=== PATIENT | female | born 1950 | race Caucasian/White ===

== ENCOUNTER → 2021-01-03 | Outpatient (CLI) | payer MEDICARE, OTHER ==
[2021-01-03 13:21] LABS: African American GFR (CKD) >90 (>60 ml/min/1.73 sqM); Blood Urea Nitrogen 18 mg/dL (7-17); Non-African American GFR(CKD) >90 (>60 ml/min/1.73 sqM)
--- NOTE | 2021-01-03 14:47 | CT ---
EXAMINATION TYPE: CT abdomen pelvis w con DATE OF EXAM: 01/03/2021 HISTORY: Malignant neoplasm of uterus. CT DLP: 796.1mGycm Automated Exposure Control for Dose Reduction was Utilized. CONTRAST: CT scan of the abdomen and pelvis is performed with IV Contrast, patient injected with 100 mL of Isov ue M300. COMPARISON: None. FINDINGS: LUNG BASES: No significant abnormality is appreciated. LIVER/GB: No significant abnormality is appreciated. PANCREAS: No significant abnormality is seen. SPLEEN: No significant abnormality is seen. ADRENALS: No significant abnormality is seen. KIDNEYS: Symmetric corticomedullary uptake and excretion without hydronephrosis seen bilaterally. BOWEL: Small to moderate size hiatal hernia is present. Oral contrast reaches level of rectum. Some d iverticula in the proximal sigmoid colon left pelvis. UTERUS/ADNEXA: Uterus is surgically absent. Surgical clips left pelvic region are noted. Additional m ore superior right pelvic clips are present. LYMPH NODES: No greater than 1cm abdominal or pelvic lymph nodes are appreciated. OSSEOUS STRUCTURES: Underlying scoliosis. Straightening of sagittal images. Prominent Schmorl node wi th superior height loss left L1 vertebra. Moderate to severe spurring and disc space narrowing with e ndplate sclerosis L-1-L2, L2-L3, and L3-L4 levels. Gvdb-rg-piqgtiec disc space narrowing and vacuum d isc phenomenon level L4-L5 level. OTHER: Deep vertical subcutaneous clips over the lower abdomen and pelvis along the rectus sheath. IMPRESSION: No suspicious mass or adenopathy to suggest metastatic malignancy.
== END ==
LOC: RADCTMAIN 11:56
PROVIDERS: ATTEND Internal Medicine
DX: C55 Malignant neoplasm of uterus, part unspecified (principal); M61.00 Myositis ossificans traumatica, unspecified site; K44.9 Diaphragmatic hernia without obstruction or gangrene
CPT/HCPCS: 82565; 84520; 74177; 36415; Q9967 ×2

== ENCOUNTER → 2021-01-26 | Outpatient (CLI) | payer MEDICARE, OTHER ==
--- NOTE | 2021-01-26 12:57 | NM ---
EXAMINATION TYPE: NM stress cardiolite complete DATE OF EXAM: 01/26/2021 COMPARISON: NONE HISTORY: Abnormal ECG, R 94.31 TECHNIQUE: After the intravenous administration of 9.7 mCi Tc 99m Sestamibi - Rest images obtained 4 5 minutes post injection. The patient exercised using a KELLY protocol and 1 minute prior to peak e xercise was injected with 26.0 mCi Tc 99m Sestamibi - Stress images obtained 13 minutes post injectio n. Patient achieved greater than 85% of predicted maximal heart rate. FINDINGS: Targeted heart rate was achieved during performance of the study. Review of stress and rest SPECT claudia ges demonstrates some mild decreased uptake along the lateral wall the left ventricle towards the bas e the heart on stress as compared to rest images. Gated analysis shows normal wall motion with an es timated left ventricular ejection fraction of 70 %. IMPRESSION: Question some stress-induced left ventricular myocardial ischemia towards the base the heart, lateral wall. Consider echocardiographic correlation for elevated ejection fraction A Yellow level critical message alert has been initiated for Dougie Oviedo MD via the [employer] [facility] Results System on 01/26/2021 12:54 PM. This message alert has been sent to Dougie Oviedo MD vi a the preferences provided by the clinician for the receipt of Radiology Critical Findings. Message I D [id number].
--- NOTE | 2021-01-26 13:58 | EST ---
EXERCISE STRESS DATE OF SERVICE: AGE: 70 SEX: F HT: @@ WT: @@ PROTOCOL: @@ STAGE: @@ DURATION OF EXERCISE: @@ HEART RATE REST: @@ BLOOD PRESSURE REST: @@ MAXIMUM HEART RATE ACHIEVED: @@ MAXIMUM BLOOD PRESSURE: @@ 85% MPHR: @@ 100% MPHR: @@ METS: @@ RESULTS: Baseline rhythm is sinus mechanism rate of 61, poor R progression, left axis deviation, nonspecific ST T wave changes. Baseline blood pressure 135/82 mmHg. The patient exercised on Demetri protocol for 6 minutes reaching peak rate 140 beats per minute which is equal to 93% maximum predicted heart rate. Peak blood pressure 177/84. Test was terminated secondary to fatigue. There was no chest pain. Electrocardiograph monitoring revealed no evidence of diagnostic ischemic ST deviation. CONCLUSION: 1. Average exercise tolerance. 2. Nondiagnostic electrocardiograph stress testing secondary to baseline EKG abnormality. If clinically indicated, an imaging stress test will be helpful. MMMELISSAL / IJN: [id number] /
== END | disposition home or self-care (01) ==
LOC: RADNMMAIN 07:46
PROVIDERS: ATTEND Internal Medicine
DX: R94.31 Abnormal electrocardiogram [ECG] [EKG] (principal)
CPT/HCPCS: 93017; 78452; A9500

== ENCOUNTER 2021-02-09 05:41 | Day surgery (SDC) | payer MEDICARE, OTHER ==
[2021-02-04 12:58] VITALS: BMI 25.5
[2021-02-09] MEDS ORDERED: NITROGLYCERIN SL TABS 0.4 MG TAB SUBLINGUAL PRN (06:18)
[2021-02-09] MEDS ORDERED: SODIUM CHLORIDE 0.9% 1,000 ML in EMPTY BAG 1 BAG IV ONE (06:18)
[2021-02-09] MEDS ORDERED: ATORVASTATIN 80 MG TAB PO STA (06:18)
[2021-02-09] MEDS ORDERED: HEPARIN SODIUM,PORCINE 2,500 UNIT in SODIUM CHLORIDE 0.9% 250 ML IRRIGATION PRN (06:18)
[2021-02-09] MEDS ORDERED: ALPRAZolam 0.25 MG TAB PO PRN (06:18)
[2021-02-09] MEDS ORDERED: ALPRAZolam 0.5 MG TAB PO PRN (06:18)
[2021-02-09] MEDS ORDERED: ASPIRIN 325 MG TAB PO STA (06:18)
[2021-02-09] MEDS ORDERED: HEPARIN SODIUM,PORCINE 10,000 UNIT in SODIUM CHLORIDE 0.9% 1,000 ML IRRIGATION PRN (06:18)
[2021-02-09 06:42] LABS: Basophils # (A) 0.1 k/uL (0-0.2); Basophils % (A) 1 %; Eosinophils # (A) 0.8 k/uL (0-0.7); Eosinophils % (A) 7 %; HCT 39.7 % (34.0-46.0); HGB 13.6 gm/dL (11.4-16.0); Lymphocytes # (A) 1.4 k/uL (1.0-4.8); Lymphocytes % (A) 12 %; MCHC 34.4 g/dL (31.0-37.0); MCV 90.1 fL (80.0-100.0); Mean Platelet Volume 6.4; Monocytes # (A) 0.6 k/uL (0-1.0); Monocytes % (A) 5 %; Neutrophils # (A) 8.3 k/uL (1.3-7.7); Neutrophils % (A) 74 %; Platelet Count 334 k/uL (150-450); RBC 4.41 m/uL (3.80-5.40); WBC 11.3 k/uL (3.8-10.6)
[2021-02-09 06:51] LABS: African American GFR (CKD) >90 (>60 ml/min/1.73 sqM); Anion Gap 7 mmol/L; Blood Urea Nitrogen 23 mg/dL (7-17); Calcium 10.4 mg/dL (8.4-10.2); Carbon Dioxide 30 mmol/L (22-30); Chloride 102 mmol/L (98-107); Glucose 113 mg/dL (74-99); Non-African American GFR(CKD) >90 (>60 ml/min/1.73 sqM); Potassium 4.5 mmol/L (3.5-5.1); Sodium 139 mmol/L (137-145)
[2021-02-09] MEDS ORDERED: LIDOCAINE 1% INJ 10MG/ML (20 ML MDV) ONE (07:13)
[2021-02-09] MEDS ORDERED: VERAPAMIL 2.5 MG/ML 2 ML AMP ONE (07:13)
[2021-02-09] MEDS ORDERED: SODIUM CHLORIDE 0.9% 1,000 ML IV ONE (07:18)
[2021-02-09] MEDS ORDERED: fentaNYL (PF) 50 MCG/ML 2 ML AMP ONE (07:31)
[2021-02-09] MEDS ORDERED: HEPARIN SODIUM 1,000 UN/ML (10ML VL) ONE (07:31)
[2021-02-09] MEDS ORDERED: fentaNYL (PF) 50 MCG/ML 2 ML AMP IVP ONE (07:58)
[2021-02-09] MEDS ORDERED: LIDOCAINE 1% INJ 10MG/ML (20 ML MDV) SQ ONE (08:03)
[2021-02-09] MEDS ORDERED: VERAPAMIL SYRINGE (5 MG/10 ML) INTRAARTER ONE (08:04)
[2021-02-09] MEDS ORDERED: HEPARIN SODIUM 1,000 UN/ML (10ML VL) IV ONE (08:11)
[2021-02-09] MEDS ORDERED: IOPAMIDOL-370 125ML BTL INJ ONE (08:16)
[2021-02-09] MEDS ORDERED: RX INFO: IV CONTRAST WAS GIVEN 1 EACH MISC MISCELLANE PRN (08:30)
[2021-02-09] MEDS ORDERED: SODIUM CHLORIDE 0.9% 1,000 ML IV SCH (08:30)
[2021-02-09] MEDS ORDERED: NON FORMULARY DRUG (Irbesartan/Hydrochlorothiazide [Irbesartan-Hctz 300-12.5 Mg Tb] 1 EACH PO SCH (09:00)
[2021-02-09] MEDS ORDERED: PANTOPRAZOLE 40 MG TABLET PO SCH (09:00)
[2021-02-09] MEDS ORDERED: METOPROLOL SUCCINATE (ER) 50 MG TAB.ER.24H PO SCH (09:00)
[2021-02-09] MEDS ORDERED: ATORVASTATIN 80 MG TAB PO SCH (09:00)
[2021-02-09] MEDS ORDERED: LEVOTHYROXINE 112 MCG TAB PO SCH (09:00)
[2021-02-09] MEDS ORDERED: ASPIRIN 81 MG PO SCH (09:00)
[2021-02-09] MEDS ORDERED: ACETAMINOPHEN TAB 325 MG TAB ONE (09:51)
--- NOTE | 2021-02-09 10:26 | CC ---
CARDIAC CATHETERIZATION REPORT Mrs. Vallejo is a 70-year-old female, known history of hypertension, hyperlipidemia, who recently underwent a myocardial perfusion imaging that revealed evidence of inducible ischemia. In view of that, recommendation was made regarding cardiac catheterization. The procedure as well as the risks and complications were discussed with the patient who is in full understanding and agreement. PROCEDURE: Patient was brought to manager labor relations in a fasting, semi-sedated state after receiving fentanyl and Benadryl and achieving moderate conscious sedated state. Using Xylocaine anesthesia and Seldinger technique a 6-Pakistani sheath was introduced in the right radial artery. Selective right and left coronary angiography performed using 5-Pakistani 3.5 bend right Abe catheter. Multiple views of the coronary artery including hemiaxial views obtained. Following that a 5-Pakistani tight pigtail catheter was introduced into the left ventricle and pressures were calculated. Following that, catheter and sheath were removed. Hemostasis was obtained with deployment of a TR band. There was no immediate complication, patient was returned to her room in stable condition. Of note, the patient received 4000 units of intravenous heparin as well as intra-arterial verapamil. FINDINGS: Left Main: This is a large-sized vessel, bifurcating into left circumflex, left anterior descending artery. Left main coronary artery has no evidence of high-grade stenosis. Left Anterior Descending Artery: This is a large-sized vessel reaching to the apex, tortuous throughout its course, giving rise to a large diagonal branch proximally. The left anterior descending artery as well as its branches have no evidence of obstructive disease. Left Circumflex: This is a nondominant vessel giving rise to 2 obtuse marginal branch. The left circumflex as well as branches have no evidence of obstructive coronary artery disease. Right Coronary Artery: Right coronary artery is a dominant vessel, large in caliber bifurcating distally PDA and posterolateral segment and branches. The right coronary artery as well as its branches have no evidence of obstructive disease. LEFT VENTRICULOGRAM: Was not performed. HEMODYNAMICS: There was no gradient across the aortic valve. The ventricle end-diastolic pressure was in 10- 14 mmHg. CONCLUSION: 1. Normal coronary arteries. 2. Right-sided dominance. RECOMMENDATION: In view of finding anatomy recommend continuing with medical therapy with aggressive coronary risk modifications that have been initiated. Those findings and recommendation were discussed with the patient and she is in full understanding and agreement. Duration of sedation is 20 minutes. i MMODL / IJN: [id number] /
--- NOTE | 2021-02-09 10:30 | LTR ---
February 09, [address] Oviedo, I had the opportunity to perform cardiac catheterization on Mrs. Vallejo at [facility] on the January, and a full copy of the procedure note will be forwarded to you. In brief, she was found to have no evidence of significant obstructive coronary artery disease and based on those findings I recommend to continue medical therapy with aggressive coronary risk modifications that have been initiated. Thank you again for allowing me the opportunity to participate in her care, please feel free to call me for any questions. MMODL / IJN: [id number] /
[2021-02-09 19:30] VITALS: BP 120/72; PULSE 70
== END 2021-02-09 13:31 | disposition home or self-care (01) ==
LOC: CATHCVL 05:41
PROVIDERS: ATTEND Internal Medicine Interventional Cardiology
DX: I77.1 Stricture of artery (principal); I10 Essential (primary) hypertension; R94.39 Abnormal result of other cardiovascular function study; Z88.8 Allergy status to other drugs, medicaments and biological substances; Z90.710 Acquired absence of both cervix and uterus; Z85.42 Personal history of malignant neoplasm of other parts of uterus; Z90.89 Acquired absence of other organs; E78.2 Mixed hyperlipidemia; Z79.890 Hormone replacement therapy; Z79.51 Long term (current) use of inhaled steroids; Z79.899 Other long term (current) drug therapy
CPT/HCPCS: 93458; 80048; 85025; 87635; C1894; C1769 ×2; J2001; J3010; J1644; Q9967

== ENCOUNTER → 2021-03-15 | Outpatient (CLI) | payer MEDICARE, OTHER ==
--- NOTE | 2021-03-15 19:03 | BD ---
EXAMINATION TYPE: Axial Bone Density DATE OF EXAM: 03/15/2021 COMPARISON: NONE CLINICAL HISTORY: Postmenopausal screening Height: 65 IN Weight: 166 LBS FRAX RISK QUESTIONS: History of Fracture in Adulthood: RT WRIST AGE 62 Secondary Osteoporosis: 3. Menopause before 45: TOTAL HYST AGE 44 RISK FACTORS HISTORY OF: History of Wrist Fracture: RT WRIST AGE 62 Active: YES Postmenopausal woman: TOTAL HYST AGE 44 Take estrogen and/or progesterone medications: NOT NOW How long: AGE 45-50 Lost more than 2 inches in height since high school: YES 3" MEDICATIONS: Thyroid Medications: YES Which medication: Levothyroxine How Lon+ YEARS Additional Medications: CALCIUM, VIT D, LEVOTHYROXINE, BLOOD PRESSURE MEDS, CHOLESTEROL HEARTBURN MED S, ATORVASTATIN EXAM MEASUREMENTS: Bone mineral densitometry was performed using the [employer] System. Bone mineral density as measured about the Lumbar spine is: ----- L1-L4(G/cm2): 1.319 T Score Values are as follows: ----- L2: 2.2 ----- L3: 1.8 ----- L4: -0.2 ----- L1-L4: 1.2 Bone mineral density BASELINE Bone mineral density about the R hip (g/cm2): 0.831 Bone mineral density about the L hip (g/cm2): 0.841 T Score values are as follows: -----R Neck: -1.5 -----L Neck: -1.4 -----R Total: -0.6 -----L Total: -0.7 Bone mineral density BASELINE IMPRESSION: Osteopenia (T Score between -2.5 and -1). There is slightly increased risk of fracture and the patient may be considered for treatment. Re-Screen 2-5 years. NOTE: T-SCORE=SD OF THE YOUNG ADULT MEAN.
--- NOTE | 2021-03-21 11:50 | MM ---
Reason for exam: screening (asymptomatic). Last mammogram was performed 2 years and 1 month ago. History: Patient has history of other cancer at age 51. Benign stereotactic core biopsy of the left breast, 2012. Took progesterone beginning at age 46. Physical Findings: A clinical breast exam by your physician is recommended on an annual basis and results should be correlated with mammographic findings. MG 3D Screening Mammo W/Cad Bilateral CC and MLO view(s) were taken. Prior study comparison: January 29, 2019, mammogram, performed at [facility]. There are scattered fibroglandular densities. Previous mammotome biopsy in the left breast. Superior right MLO asymmetric density is unchanged. No significant changes when compared with prior studies. ASSESSMENT: Benign, BI-RAD 2 RECOMMENDATION: Routine screening mammogram of both breasts in 1 year.
== END | disposition home or self-care (01) ==
LOC: RADMAMWWP 10:55
PROVIDERS: ATTEND Internal Medicine
DX: Z12.31 Encounter for screening mammogram for malignant neoplasm of breast (principal); Z13.820 Encounter for screening for osteoporosis; C55 Malignant neoplasm of uterus, part unspecified; R94.31 Abnormal electrocardiogram [ECG] [EKG]; M85.80 Other specified disorders of bone density and structure, unspecified site; M81.0 Age-related osteoporosis without current pathological fracture
CPT/HCPCS: 77063; 77067; 77080

== ENCOUNTER → 2022-03-08 | Outpatient (CLI) | payer MEDICARE, OTHER ==
--- NOTE | 2022-03-09 08:15 | US ---
EXAMINATION TYPE: US carotid duplex BILAT DATE OF EXAM: 03/08/2022 COMPARISON: NONE CLINICAL HISTORY: 71-year-old female I65.23 CAROTID STENOSIS. Hypertension. TECHNIQUE: Carotid duplex ultrasound examination. Indirect Doppler criteria is visualized. FINDINGS: EXAM MEASUREMENTS: RIGHT: Peak Systolic Velocity (PSV) cm/sec ----- Right CCA: 71.0 ----- Right ICA: 88.9 ----- Right ECA: 125.8 ICA/CCA ratio: 1.3 RIGHT: End Diastole cm/sec ----- Right CCA: 20.4 ----- Right ICA: 29.6 ----- Right ECA: 16.0 LEFT: Peak Systolic Velocity (PSV) cm/sec ----- Left CCA: 69.8 ----- Left ICA: 96.8 ----- Left ECA: 85.8 ICA/CCA ratio: 1.4 LEFT: End Diastole cm/sec ----- Left CCA: 18.0 ----- Left ICA: 35.4 ----- Left ECA: 11.6 VERTEBRALS (direction of flow): Right Vertebral: Antegrade Left Vertebral: Antegrade Rhythm: Normal SENIOR DATA SCIENTIST NOTES: No significant stenosis IMPRESSION: No hemodynamically significant internal carotid artery stenosis on either side. Criteria for Assigning % of Stenosis / Diameter reduction (Estimation based on the indirect measurements of the internal carotid artery velocities (ICA PSV). 1. Normal (no stenosis)=ICA PSV < 125 cm/s: ratio < 2.0: ICA EDV<40 cm/s. 2. Less than 50% stenosis=ICA PSV < 125 cm/s: ratio < 2.0: ICA EDV<40 cm/s. 3. 50 to 69% stenosis=ICA PSV of 125 to 230 cm/s: ration 2.0 ? 4.0: ICA EDV 40-100 cm/s. 4. Greater than 70% stenosis to near occlusion= ICA PSV > 230 cm/s: ratio > 4.0: ICA EDV > 100 cm/s. 5. Near occlusion= ICA PSV velocities may be low or undetectable: variable ratio and ICA EDV. 6. Total occlusion=unable to detect flow.
== END | disposition home or self-care (01) ==
LOC: RADUSWWP 16:49
PROVIDERS: ATTEND Internal Medicine
DX: I65.23 Occlusion and stenosis of bilateral carotid arteries (principal)
CPT/HCPCS: 93880

== ENCOUNTER → 2022-07-03 | Outpatient (CLI) | payer MEDICARE, OTHER ==
--- NOTE | 2022-07-03 13:02 | XR ---
EXAMINATION TYPE: XR ankle complete LT DATE OF EXAM: 07/03/2022 COMPARISON: NONE HISTORY: Pain FINDINGS: Three views of the ankle demonstrate the ankle mortise to be intact and symmetric. There is a displac ed oblique fracture through the distal fibula. Calcaneal spur noted. Soft tissue edema laterally. IMPRESSION: 1. There is a displaced oblique fracture through the distal fibula.
== END | disposition home or self-care (01) ==
LOC: RADXRMAIN 12:31
PROVIDERS: ATTEND Internal Medicine
DX: S82.432A Displaced oblique fracture of shaft of left fibula, initial encounter for closed fracture (principal); M25.572 Pain in left ankle and joints of left foot

== ENCOUNTER → 2023-01-10 | Outpatient (CLI) | payer MEDICARE, OTHER ==
--- NOTE | 2023-01-10 15:33 | CT ---
EXAMINATION TYPE: CT abdomen pelvis w con DATE OF EXAM: 01/10/2023 HISTORY: h/o uterine CA, elevated LFTs CT DLP: 693.7mGycm Automated Exposure Control for Dose Reduction was Utilized. CONTRAST: CT scan of the abdomen and pelvis is performed with IV Contrast, patient injected with 100 mL of Isov ue 300. COMPARISON: CT January 03, 2021 FINDINGS: LUNG BASES: Mild anterior linear scarring and/or atelectasis redemonstrated. LIVER/GB: Liver remains normal in size without concerning solid or cystic mass or new biliary dilatat ion. Liver remains heterogeneously hypodense. PANCREAS: No significant abnormality is seen. SPLEEN: No significant abnormality is seen. ADRENALS: No significant abnormality is seen. KIDNEYS: No significant abnormality is seen. BOWEL: Oral contrast does not reach level of terminal ileum. Small to moderate size hiatal hernia red emonstrated. No suspicious small or large bowel dilatation. Surgical clips with streak artifact near base of cecum are redemonstrated. Some scattered colonic diverticula are redemonstrated. No CT eviden ce for acute diverticulitis. UTERUS/ADNEXA: Uterus surgically absent. Surgical clips left pelvis redemonstrated. LYMPH NODES: No greater than 1cm abdominal or pelvic lymph nodes are appreciated. OSSEOUS STRUCTURES: Underlying scoliosis redemonstrated. Straightening of spine on sagittal images re demonstrated. Prominent Schmorl node with superior height loss left L1 vertebra is redemonstrated. Pe rsistent fat density lesion left L2 vertebra sagittal image 68 redemonstrated. Moderate to severe spu rring and disc space narrowing with endplate sclerosis L1-L2 through L3-L4 levels redemonstrated. Mod erate disc space narrowing and vacuum disc phenomenon at L4-L5 level redemonstrated. OTHER: Deep vertical subcutaneous clips over the lower abdomen and pelvis along the rectus sheath red emonstrated. Small to moderate-size fat-containing umbilical hernia redemonstrated. IMPRESSION: No new biliary dilatation. No suspicious new intrahepatic mass. No suspicious new mass or adenopathy to suggest active neoplastic recurrence.
== END | disposition home or self-care (01) ==
LOC: RADCTMAIN 12:47
PROVIDERS: ATTEND Internal Medicine
DX: C55 Malignant neoplasm of uterus, part unspecified (principal); R79.89 Other specified abnormal findings of blood chemistry
CPT/HCPCS: 74177; Q9967

== ENCOUNTER → 2023-04-04 | Outpatient (CLI) | payer MEDICARE, OTHER ==
--- NOTE | 2023-04-04 23:23 | BD ---
EXAMINATION TYPE: Axial Bone Density DATE OF EXAM: 04/04/2023 CLINICAL HISTORY: 72 years old Female. ICD-10 CODE: [id number] OSTEO OF R HIP Height: 5 ft 6 in Weight: 161 FRAX RISK QUESTIONS: Alcohol (3 or more units per day): no Family History (Parent hip fracture): no Glucocorticoids (More than 3mos): yes (Ex: prednisone, prednisolone, methylprednisolone, dexamethasone, and hydrocortisone). History of Fracture in Adulthood: yes Secondary Osteoporosis: 1. Type 1 Diabetes: no 2. Hyperthyroidism: no 3. Menopause before 45: yes 4. Malnutrition: no 5. Chronic liver disease: no Rheumatoid Arthritis: no Current Tobacco Use: no RISK FACTORS HISTORY OF: History of Wrist Fracture: rt wrist When: age 62 Surgery to Spine/Hip(right/left)/Wrist (right/left): no Family History of Osteoporosis: no Active: yes Diet low in dairy products/other sources of calcium: no Postmenopausal woman: yes Take estrogen and/or progesterone medications: none now Lost more than 2 inches in height since high school: yes Frequent falls: no Poor Health: good Hyperparathyroidism: no Adrenal Insufficiency: no MEDICATIONS: Prednisone or other steroids: asthma inhalers How Lon years Thyroid Medications: yes Which medication: levothyroxine How Long: since age 46 Additional Medications: asthma inhalers, levothyroxine, metoprolol, Atorvastatin, heart burn meds Additional History: EXAM MEASUREMENTS: Bone mineral densitometry was performed using the [employer] System. Bone mineral density as measured about the Lumbar spine is: ----- L1-L4(G/cm2): 1.408 T Score Values are as follows: ----- L1: 1.0 ----- L2: 2.5 ----- L3: 2.7 ----- L4: 1.4 ----- L1-L4: 1.9 Z Score Values are as follows: ----- L1: 2.4 ----- L2: 3.9 ----- L3: 4.1 ----- L4: 2.8 ----- L1-L4: 3.3 Bone mineral density has: increased 0.2 % since study of: 2020 Bone mineral density about the R hip (g/cm2): 0.863 Bone mineral density about the L hip (g/cm2): 0.859 T Score values are as follows: -----R Neck: -1.3 -----L Neck: -1.3 -----R Total: -0.5 -----L Total: -0.6 Z Score values are as follows: -----R Neck: 0.3 -----L Neck: 0.3 -----R Total: 0.9 -----L Total: 0.7 Bone mineral density has: increased 1.2 % since study of: 2020 FRAX%s: The graph provided illustrates a 15.5 % chance for a major osteoporotic fx and a 2.1 % chance for the hips probability for fx in 10 years time. IMPRESSION: Osteopenia (T Score between -2.5 and -1). There is slightly increased risk of fracture and the patient may be considered for treatment. Re-Screen 2-5 years. NOTE: T-SCORE=SD OF THE YOUNG ADULT MEAN.
--- NOTE | 2023-04-05 10:59 | MM ---
Reason for Exam: Screening (asymptomatic). Last screening mammogram was performed 12 month(s) ago. Patient History: Menarche at age 12. Patient has no children. Left ovary removed at age 45. Right ovary removed at age 45. Hysterectomy at age 45. Postmenopausal. Other cancer, age 51. Progesterone, from age 46 until age 51. 2012, Benign Stereotactic Core Biopsy on the left side. Risk Values: Jessica 5 year model risk: 2.5%. NCI Lifetime model risk: 6.9%. Prior Study Comparison: 01/29/2019 Screening Mammogram, [facility]. 03/15/2021 Bilateral Screening Mammogram, [facility]. 04/03/2022 Bilateral MG 3D screening mammo w/cad, [facility]. Tissue Density: The breast tissue is heterogeneously dense. This may lower the sensitivity of mammography. Findings: Analyzed By CAD. There is no suspicious group of microcalcifications or new suspicious mass in either breast. Overall Assessment: Benign, BI-RAD 2 Management: Screening Mammogram of both breasts in 1 year. . Patient should continue monthly self-breast exams. A clinical breast exam by your physician is recommended on an annual basis. This exam should not preclude additional follow-up of suspicious palpable abnormalities. Note on Jessica scores and lifetime risk: 1. A Jessica score greater than 3% is considered moderate risk. If this is the case, consider specialist referral to assess eligibility for a risk reducing agent. 2. If overall lifetime risk for the development of breast cancer is 20% or higher, the patient may qualify for future screening with alternating mammogram and breast MRI. Electronically signed and approved by: Ean Zhang M.D. Radiologis
== END | disposition home or self-care (01) ==
LOC: RADMAMWWP 08:57
PROVIDERS: ATTEND Internal Medicine
DX: Z12.31 Encounter for screening mammogram for malignant neoplasm of breast (principal); M85.89 Other specified disorders of bone density and structure, multiple sites; Z78.0 Asymptomatic menopausal state
CPT/HCPCS: 77063; 77067; 77080

== ENCOUNTER → 2024-01-18 | Outpatient (CLI) | payer MEDICARE, OTHER ==
--- NOTE | 2024-01-18 09:30 | US ---
EXAMINATION TYPE: US liver DATE OF EXAM: 01/18/2024 COMPARISON: NONE CLINICAL INDICATION: Female, 73 years old with history of R79.89 ELEVATED LFT I65.23 CAROTID STENOSIS ,BILAT; Elevated liver enzymes TECHNIQUE: Multiple sonographic images of the right upper quadrant are obtained. FINDINGS: EXAM MEASUREMENTS: Liver Length: 12.9 cm Gallbladder Wall: 0.3 cm CBD: 0.4 cm Right Kidney: 10.0 x 4.7 x 4.1 cm ELECTRO OPTICS ENGINEER NOTES:*Limitations due to overlying bowel gas Pancreas: ?possible isoechoic lesion adjacent to head = 1.2 x 0.8 x 1.0cm Liver: visualized portions appear wnl Gallbladder: no evidence of stones Evidence for sonographic Garcia's sign: no CBD: appears wnl Right Kidney: no evidence of hydronephrosis IMPRESSION: 1. Heterogenous area within the pancreatic head. Further evaluation with pancreatic mass protocol MR I recommended to exclude a lesion. 2. No evidence for acute process.
--- NOTE | 2024-01-18 09:31 | US ---
EXAMINATION TYPE: US carotid duplex BILAT DATE OF EXAM: 01/18/2024 COMPARISON: NONE CLINICAL INDICATION: Female, 73 years old with history of R79.89 ELEVATED LFT I65.23 CAROTID STENOSIS ,BILAT; TECHNIQUE: Carotid duplex ultrasound examination. Indirect Doppler criteria was utilized. FINDINGS: EXAM MEASUREMENTS: RIGHT: Peak Systolic Velocity (PSV) cm/sec ----- Right CCA: 84.4 ----- Right ICA: 85.8 ----- Right ECA: 83.8 ICA/CCA ratio: 1.02 RIGHT: End Diastole cm/sec ----- Right CCA: 28.1 ----- Right ICA: 30.3 ----- Right ECA: 13.4 LEFT: Peak Systolic Velocity (PSV) cm/sec ----- Left CCA: 73.4 ----- Left ICA: 78.7 ----- Left ECA: 68.0 ICA/CCA ratio: 1.07 LEFT: End Diastole cm/sec ----- Left CCA: 19.7 ----- Left ICA: 29.5 ----- Left ECA: 12.3 VERTEBRALS (direction of flow): Right Vertebral: Antegrade Left Vertebral: Antegrade Rhythm: Normal MARINE RESOURCE ECONOMIST NOTES: Mild plaque bilateral bifurcations. No evidence of increased velocities IMPRESSION: Less than 50% stenosis of the bilateral carotid bifurcations. Criteria for Assigning % of Stenosis / Diameter reduction (Estimation based on the indirect measurements of the internal carotid artery velocities (ICA PSV). 1. Normal (no stenosis)=ICA PSV < 125 cm/s: ratio < 2.0: ICA EDV<40 cm/s. 2. Less than 50% stenosis=ICA PSV < 125 cm/s: ratio < 2.0: ICA EDV<40 cm/s. 3. 50 to 69% stenosis=ICA PSV of 125 to 230 cm/s: ration 2.0 ? 4.0: ICA EDV 40-100 cm/s. 4. Greater than 70% stenosis to near occlusion= ICA PSV > 230 cm/s: ratio > 4.0: ICA EDV > 100 cm/s. 5. Near occlusion= ICA PSV velocities may be low or undetectable: variable ratio and ICA EDV. 6. Total occlusion=unable to detect flow.
--- NOTE | 2024-01-18 10:06 | CA ---
Transthoracic Echo Report Name: Jackelyn Vallejo Age: 73 Gender: F : 1950 Exam Date: 01/18/2024 09:06 Exam Location: [facility] Ht (in): 66 Wt (lb): 154 Ordering Physician: Dougie Oviedo MD Attending/Referring Phys: Dougie Oviedo MD De Icer Finisher Ruthann Hernandez RDCS Procedure CPT: Indications: I34.0 NONRHEUMALIC MILTRAL VALVE REG Cardiac Hx: Technical Quality: Fair Contrast 1: Total Dose (mL): Contrast 2: Total Dose (mL): MEASUREMENTS (Male / Female) Normal Values 2D ECHO LV Diastolic Diameter PLAX 4.0 cm 4.2 - 5.9 / 3.9 - 5.3 cm LV Systolic Diameter PLAX 2.1 cm IVS Diastolic Thickness 1.2 cm 0.6 - 1.0 / 0.6 - 0.9 cm LVPW Diastolic Thickness 1.0 cm 0.6 - 1.0 / 0.6 - 0.9 cm LV Relative Wall Thickness 0.6 RV Internal Dim ED PLAX 2.7 cm LA Volume 75.4 cm??? 18 - 58 / 22 - 52 cm??? LA Volume Index 41.6 cm???/m??? 16 - 28 cm???/m??? M-MODE Aortic Root Diameter MM 3.1 cm LA Systolic Diameter MM 3.0 cm LA Ao Ratio MM 1.0 AV Cusp Separation MM 1.8 cm DOPPLER AV Peak Velocity 150.0 cm/s AV Peak Gradient 9.0 mmHg AV Mean Velocity 101.2 cm/s AV Mean Gradient 4.8 mmHg AV Velocity Time Integral 30.0 cm LVOT Peak Velocity 129.4 cm/s LVOT Peak Gradient 6.7 mmHg LVOT Velocity Time Integral 31.6 cm MV Area PHT 3.0 cm??? Mitral E Point Velocity 87.3 cm/s Mitral A Point Velocity 102.5 cm/s Mitral E to A Ratio 0.9 MV Deceleration Time 256.3 ms MV E' Velocity 6.3 cm/s Mitral E to MV E' Ratio 14.0 TR Peak Velocity 242.5 cm/s TR Peak Gradient 23.5 mmHg Right Ventricular Systolic Press 27.1 mmHg FINDINGS Left Ventricle Mildly increased left ventricular wall thickness. Left ventricular cavity size normal. Normal left ventricular systolic function with no obvious regional wall motion abnormalities. Left ventricular ejection fraction is estimated at 55-60 %. Grade 1 diastolic dysfunction. Right Ventricle Normal right ventricular size and function. Right ventricular systolic pressure within normal limits. Right Atrium Normal right atrial size. Left Atrium Severely increased left atrial volume. Mildly increased left atrial area. Mitral Valve Structurally normal mitral valve. Mitral valve thickened. Mild mitral annular calcification. Gpmtsfsq-mv-ikqupc mitral regurgitation. Centrally directed mitral regurgitation jet. Aortic Valve Trileaflet aortic valve. No aortic stenosis. Trace to mild aortic regurgitation. Tricuspid Valve Structurally normal tricuspid valve. Bveb-ay-tkwfeqcg tricuspid regurgitation. Pulmonic Valve Structurally normal pulmonic valve. Trace pulmonic regurgitation. Pericardium No pericardial effusion. Aorta Normal size aortic root and proximal ascending aorta. CONCLUSIONS Normal LV function Moderate to severe mitral regurgitation Mild to moderate tricuspid regurgitation Previewed by: Dr. Son Long MD (Electronically Signed) Final Date: 18 January 2024 10:05
== END | disposition home or self-care (01) ==
LOC: RADUSWWP 07:55
PROVIDERS: ATTEND Internal Medicine
DX: R79.89 Other specified abnormal findings of blood chemistry (principal); I65.23 Occlusion and stenosis of bilateral carotid arteries; I08.1 Rheumatic disorders of both mitral and tricuspid valves
CPT/HCPCS: 76705; 93306; 93880

== ENCOUNTER → 2024-03-11 | Outpatient (CLI) | payer MEDICARE, OTHER ==
--- NOTE | 2024-03-11 15:46 | MR ---
EXAMINATION TYPE: MR MRCP DATE OF EXAM: 03/11/2024 11:13 AM CLINICAL INDICATION:Female, 73 years old with history of R94.5 abnormal liver function studies; PHH, Abnormal liver function studies. COMPARISON: 01/10/2023 TECHNIQUE: Multi planar, T2-weighted imaging with and without fat saturation and chemical shift imag ing was performed of the abdomen. Then, heavily T2 weighted imaging (half-Fourier acquisition single- shot turbo spin-echo) was utilized in order to study the biliary system. Maximum intensity projectio n images were reconstructed from the original data of the biliary tree. 3D images were created on a tolingo work station. No Gadolinium given. FINDINGS: Lower Thorax: No evidence for acute process. The heart is mildly enlarged for size. MRCP: * The intrahepatic ducts have a normal appearance. * The extrahepatic ducts have a normal appearance. * The common hepatic duct measures 5 mm in size. * The common bile duct at the level of the pancreatic head measures 3 mm in size. * The pancreatic duct is normal. * The gallbladder appears unremarkable. Abdomen: Liver: No evidence for hepatic steatosis or cirrhosis. Pancreas: No ductal dilation. No evidence for solid mass. Spleen: Normal for size. Adrenal glands: Unremarkable. Kidneys: No evidence for obstructive uropathy. No suspicious renal masses. Subcentimeter probable grant al cysts. Stomach and Bowel: Small hiatal hernia. No evidence for bowel wall thickening or evidence for obstruc tion. Retroperitoneum/Peritoneum: No evidence of pneumoperitoneum or free fluid. Vasculature: No aortic aneurysm. Musculoskeletal: The osseous structures appear intact. Moderate degeneration changes throughout the s pine with Lymph Nodes: No gross evidence for lymphadenopathy. Abdominal wall: Fat-containing umbilical hernia. Postsurgical changes anterior midline abdominal wall . IMPRESSION: 1. No evidence for lymphadenopathy or mass. No evidence to suggest ductal stricture, choledocholithi asis, or biliary ductal dilatation. 2. Hepatic steatosis. 3. Small hiatal hernia. 4. Left lower lung bronchiectasis as seen on prior CT.
== END | disposition home or self-care (01) ==
LOC: RADMRIMAIN 10:04
PROVIDERS: ATTEND Internal Medicine
DX: K76.0 Fatty (change of) liver, not elsewhere classified (principal); K44.9 Diaphragmatic hernia without obstruction or gangrene; J47.9 Bronchiectasis, uncomplicated; R94.5 Abnormal results of liver function studies
CPT/HCPCS: 74181

== ENCOUNTER → 2024-07-23 | Outpatient (CLI) | payer MEDICARE, OTHER ==
--- NOTE | 2024-07-28 11:22 | MM ---
Reason for Exam: Screening (asymptomatic). Last mammogram was performed 1 year(s) and 4 month(s) ago. Patient History: Menarche at age 12. Patient has no children. Left ovary removed at age 45. Right ovary removed at age 45. Hysterectomy at age 45. Postmenopausal. Other cancer, age 51. Progesterone, from age 46 until age 51. 2013, Benign Stereotactic Core Biopsy on the left side. Risk Values: Jessica 5 year model risk: 2.5%. NCI Lifetime model risk: 6.6%. Prior Study Comparison: 03/15/2021 Bilateral Screening Mammogram, [facility]. 04/03/2022 Bilateral MG 3D screening mammo w/cad, [facility]. 04/04/2023 Bilateral MG 3D screening mammo w/cad, [facility]. Tissue Density: There are scattered areas of fibroglandular density. Findings: Analyzed By CAD. Right breast: There is no suspicious group of microcalcifications or new suspicious mass. Benign-appearing calcifications right breast. Left breast: There is no suspicious group of microcalcifications or new suspicious mass. Benign-appearing calcifications left breast. Overall Assessment: Benign, BI-RAD 2 Management: Screening Mammogram of both breasts in [address] [facility] will attempt to contact patient to return for supplemental views and ultrasound if indicated. Patient should continue monthly self-breast exams. A clinical breast exam by your physician is recommended on an annual basis. This exam should not preclude additional follow-up of suspicious palpable abnormalities. Note on Jessica scores and lifetime risk: 1. A Jessica score greater than 3% is considered moderate risk. If this is the case, consider specialist referral to assess eligibility for a risk reducing agent. 2. If overall lifetime risk for the development of breast cancer is 20% or higher, the patient may qualify for future screening with alternating mammogram and breast MRI. [facility], , 07/28/2024 11:18 AM. Electronically signed and approved by: aNvid Rosario DO
== END | disposition home or self-care (01) ==
LOC: RADMAMWWP 12:29
PROVIDERS: ATTEND Internal Medicine
DX: Z12.31 Encounter for screening mammogram for malignant neoplasm of breast (principal); R92.323 Mammographic fibroglandular density, bilateral breasts; Z78.0 Asymptomatic menopausal state; Z90.722 Acquired absence of ovaries, bilateral
CPT/HCPCS: 77063; 77067

== ENCOUNTER 2024-08-29 07:44 | Day surgery (SDC) | payer MEDICARE, OTHER ==
[~2024-08-29 07:44] MED LIST: BENZOCAINE SPRAY 1 CAN TOPICAL PRN; MIDAZOLAM 2 MG/2 ML VIAL IV PRN; fentaNYL (PF) 50 MCG/ML 5 ML AMP IVP PRN
[2024-08-29 08:02] VITALS: TEMP 97.8
[2024-08-29] MEDS: IV FLUID CONTINUATION 1,000 ML IV ONE (08:02)
[2024-08-29] MEDS: BENZOCAINE SPRAY 1 CAN TOPICAL ONE ×2 (10:09→10:18)
[2024-08-29] MEDS: MIDAZOLAM 2 MG/2 ML VIAL IVP ONE (10:20)
[2024-08-29] MEDS: fentaNYL (PF) 50 MCG/ML 2 ML AMP IVP ONE (10:20)
[2024-08-29 10:36] VITALS: RESP 18
--- NOTE | 2024-08-29 10:40 | P.PCN ---
Date of Procedure: 08/29/24 Description of Procedure: Indication: Mitral regurgitation Procedure Description: After explaining the procedure to the patient, it's risk and complications, blood pressure, heart rate and O2 saturation were monitored. The throat was sprayed with Cetacaine. Patient received 2 mg intravenous Versed, 50 mcg intravenous fentanyl. The probe was introduced into the esophagus without difficulty. Images were obtained. Following that, the probe was removed. There was no immediate complication. Findings: Left atrial size is dilated, left atrial appendage is normal. Left ventricular size and systolic function are normal. The aortic valve is a tricuspid valve and appears to be normal. The mitral valve revealed mild bileaflet prolapse more noted on the posterior mitral valve leaflets. The tricuspid and pulmonic valve appeared to be normal. Descending thoracic aorta revealed mild atherosclerotic changes. No pericardial effusion was noted. Contrast bubble study revealed minimal shunting probably through a small PFO. Doppler: Pulse wave and color Doppler were obtained, and revealed moderate to severe central mitral regurgitation with a PISA of 0.8 cm. Moderate tricuspid regurgitation was noted with no evidence of pulmonary hypertension. No shunting by color Doppler study was noted Conclusion: 1. Dilated left atrium with normal appearance of the left atrial appendage 2. Normal ventricular size and systolic function 3. Prolapse of the mitral valve leaflets more noted on the posterior mitral valve leaflet with moderate to severe central mitral regurgitation 4. Moderate tricuspid regurgitation 5. Minimal shunting by contrast bubble study through a PFO 6. Mild atherosclerotic changes of the descending thoracic aorta Duration of sedation 15 minutes.
[2024-08-29] MEDS ORDERED: SODIUM CHLORIDE 0.9% 1,000 ML IV SCH (10:45)
[2024-08-29 11:38] VITALS: BP 104/64; PULSE 68
[2024-08-30] MEDS ORDERED: ATORVASTATIN 80 MG TAB PO SCH (09:00)
[2024-08-30] MEDS ORDERED: IRBESARTAN PO SCH (09:00)
[2024-08-30] MEDS ORDERED: [UNRECOGNIZED DRUG - OTHER] PO SCH (09:00)
[2024-08-30] MEDS ORDERED: LEVOTHYROXINE 112 MCG TAB PO SCH (09:00)
[2024-08-30] MEDS ORDERED: METOPROLOL SUCCINATE (ER) 50 MG TAB.ER.24H PO SCH (09:00)
[2024-08-30] MEDS ORDERED: HYDROCHLOROTHIAZIDE PO SCH (09:00)
== END 2024-08-29 11:40 | disposition home or self-care (01) ==
LOC: CATHCVL 07:44
PROVIDERS: ATTEND Internal Medicine Interventional Cardiology
DX: I08.1 Rheumatic disorders of both mitral and tricuspid valves (principal); I70.0 Atherosclerosis of aorta; I10 Essential (primary) hypertension; E78.2 Mixed hyperlipidemia; Q21.12 Patent foramen ovale; Z88.8 Allergy status to other drugs, medicaments and biological substances; Z79.02 Long term (current) use of antithrombotics/antiplatelets; Z79.890 Hormone replacement therapy; Z79.899 Other long term (current) drug therapy
CPT/HCPCS: 93312; 93320; 93325; J2250; J3010

== ENCOUNTER → 2024-08-30 | Outpatient (CLI) | payer MEDICARE, OTHER ==
[2024-08-30 23:22] LABS: Basophils # (A) 0.06 X 10*3/uL (0.00-0.10); Basophils % (A) 0.7 %; Eosinophils # (A) 1.09 X 10*3/uL (0.04-0.35); Eosinophils % (A) 12.3 %; HCT 44.8 % (37.2-46.3); HGB 14.4 g/dL (12.0-15.0); Lymphocytes % (A) 19.2 %; MCH 29.8 pg (27.0-32.0); MCHC 32.1 g/dL (32.0-37.0); MCV 92.6 FL (80.0-97.0); Mean Platelet Volume 10.3 FL (9.5-12.2); Monocytes # (A) 0.76 X 10*3/uL (0.20-1.00); Monocytes % (A) 8.6 %; NRBC Per 100 WBC 0 X 10*3/uL (0.00-0.01); Neutrophils # (A) 5.21 X 10*3/uL (1.80-7.70); Platelet Count 345 X 10*3/uL (140-440); RBC 4.84 X 10*6/uL (4.10-5.20); RDW 13.7 % (11.5-14.5); WBC 8.84 X 10*3/uL (4.50-10.00)
[2024-08-31 07:35] LABS: % Iron Saturation 25.71 (12.00-45.00); ALT 66 U/L (8-44); AST 64 U/L (13-35); Albumin 4.2 g/dL (3.8-4.9); Albumin/Globulin Ratio 1.27 Ratio (1.60-3.17); Alkaline Phosphatase 97 U/L (41-126); BUN/Creat Ratio 18.75 Ratio (12.00-20.00); Calcium 10.4 mg/dL (8.7-10.3); Carbon Dioxide 26.6 mmol/L (21.6-31.8); Chloride 102 mmol/L (96-109); Ferritin 66.5 ng/mL (10.0-291.0); Globulin 3.3 g/dL (1.6-3.3); Glucose 90 mg/dL (70-110); Iron 108 UG/DL (50-170); Potassium 4.7 mmol/L (3.5-5.5); Sodium 140 mmol/L (135-145); Total Bilirubin 0.5 mg/dL (0.3-1.2); Total Iron Binding Capacity 420 UG/DL (228-460); Total Protein 7.5 g/dL (6.2-8.2)
[2024-08-31 07:36] LABS: Hepatitis B Surface Antigen Nonreactive (Nonreactive)
[2024-08-31 07:49] LABS: Ceruloplasmin 32.1 mg/dL (20.0-60.0)
[2024-09-01 10:20] LABS: Protein, Total 7.7 g/dL (6.2-8.2)
[2024-09-01 14:19] LABS: Smooth Muscle Antibody 31 UNITS (<20)
== END | disposition home or self-care (01) ==
LOC: LABWHC1 09:50
PROVIDERS: ATTEND Internal Medicine Gastroenterology
DX: R94.5 Abnormal results of liver function studies (principal)
CPT/HCPCS: 36415; 80053; 81596; 82103; 82390; 82728; 83516; 83540; 83550; 84165; 85025; 86038; 87340

== ENCOUNTER 2024-10-07 06:29 | Day surgery (SDC) | payer MEDICARE, OTHER ==
[2024-10-07] MEDS: IV FLUID CONTINUATION 1,000 ML IV ONE ×2 (07:03→08:00)
[2024-10-07 07:11] VITALS: RESP 16; TEMP 97.2
[2024-10-07] MEDS: LACTATED RINGERS 1,000 ML IV SCH (07:16)
[2024-10-07] MEDS ORDERED: LIDOCAINE 1% INJ 10MG/ML (20 ML MDV) ONE (07:30)
[2024-10-07] MEDS ORDERED: PROPOFOL 10 MG/ML 20 ML VIAL IV ONE (07:30)
--- NOTE | 2024-10-07 07:58 | P.PCN ---
Date of Procedure: 10/07/24 Procedure(s) Performed: Brief history: Patient is a pleasant 73-year-old white female scheduled for an elective upper endoscopy as well as colonoscopy as a part of evaluation of GERD and screening for colon cancer. Her mom was diagnosed with colon cancer at age 50. Her last endoscopy was 5 years ago. Procedure performed: Esophagogastroduodenoscopy with biopsy Colonoscopy snare polypectomy Preoperative diagnosis: GERD Screening for colon cancer and family history of colon cancer Anesthesia: MAC Procedure: After informed consent was obtained from the patient was brought into the endoscopy unit and IV sedation was administered by anesthesia under continuous monitoring. Initially upper endoscopy was done. The Olympus GF 160 video endoscope was inserted inserted into the mouth and esophagus intubated without any difficulty and was gradually advanced into the stomach and duodenum and carefully examined. The bulb and second part of the duodenum appeared normal. The scope was then withdrawn into the stomach adequately insufflated with air and upon careful examination the antrum and mild gastritis and biopsies were done from this area. Mucosa of the body, cardia and fundus appeared normal. The scope was then withdrawn into the esophagus. Mild to moderate size hiatal hernia noted. The GE junction was located at 36 cm to the incisors. 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 Rest of the esophagus appeared normal. Patient tolerated the procedure well. At this time the patient continued to remain sedation. Initial digital rectal examination was normal. Olympus CF 160 video colonoscope was then inserted into the rectum and gradually advanced to the cecum without any difficulty. Careful examination was performed as the scope was gradually being withdrawn. The prep was excellent. The cecum had 3 mm, 5 mm x 2 cecal polyp status post cold snare polypectomy. Rest of the, ascending colon, transverse colon, descending colon normal. The sigmoid colon there was another 5 mm sessile polyp removed by cold snare polypectomy. There were scattered sigmoid diverticulosis seen. Rest of the, sigmoid colon and rectum appeared normal. Retroflexion was performed in the rectum and no lesions were noted. Patient tolerated the procedure well. Impression: 1. Upper endoscopy revealed mild antral gastritis, small hiatal hernia and Carroll's esophagus 2. Colonoscopy revealed: 3 mm, 5 mm x 2 cecal polyp status post cold snare polypectomy 5 mm sigmoid colon polyp status post cold snare polypectomy Scattered sigmoid diverticulosis Recommendations: Findings of this examination were discussed with the patient as well as her family. She was advised to follow-up with the biopsy results. If the biopsy confirms the presence of Carroll's esophagus recommend a repeat upper endoscopy in 3 years. If the biopsy of the colon polyp reveals adenoma she can have repeat colonoscopy in 3 years.
[2024-10-07 08:03] VITALS: PULSE 66
[2024-10-07 08:16] VITALS: BP 116/77
== END 2024-10-07 08:36 | disposition home or self-care (01) ==
LOC: ORWHC2ENDO 06:29
PROVIDERS: ATTEND Internal Medicine Gastroenterology
DX: Z12.11 Encounter for screening for malignant neoplasm of colon (principal); D12.0 Benign neoplasm of cecum; K57.30 Diverticulosis of large intestine without perforation or abscess without bleeding; K29.50 Unspecified chronic gastritis without bleeding; K31.89 Other diseases of stomach and duodenum; K22.70 Barrett's esophagus without dysplasia; K21.00 Gastro-esophageal reflux disease with esophagitis, without bleeding; K44.9 Diaphragmatic hernia without obstruction or gangrene; I10 Essential (primary) hypertension; E78.5 Hyperlipidemia, unspecified; E07.9 Disorder of thyroid, unspecified; J45.909 Unspecified asthma, uncomplicated; Z79.890 Hormone replacement therapy; Z79.899 Other long term (current) drug therapy; Z80.0 Family history of malignant neoplasm of digestive organs; Z88.8 Allergy status to other drugs, medicaments and biological substances
CPT/HCPCS: 88305; 45385; 43239; J2003; J2704